=== PATIENT | female | born 1980 | race Caucasian/White ===

== ENCOUNTER → 2017-07-10 | Outpatient (CLI) | payer BC ==
[~2017-07-10] MED LIST: ALBUTEROL0.83 MG/ML IH; AMOXICILLIN 50500 MG PO; BCP TD; CIPRO 500MG TA500 MG PO; DROSPIRENONE; EMSAM12 MG/24 H TD; FLEXERIL5 MG PO; FOLIC ACID 11 MG/TA1 PO; IMITREX 6M6 MG/0.5 M SQ; KLONOPIN 1MG1 MG PO; LAMICTAL150 MG PO; LEVAQUIN 5500 MG/TA1 PO; LITHIUM CARBON300 MG PO; MAGNESIUM GLUC500 MG PO; NEURONTIN100 MG/CAP PO; NORCO 325 MG-51 TAB PO; PATANOL OPHTHALM5 ML OU; PERCOCET 5/321 UDTAB PO; PREDNISONE10 MG PO; PRISTIQ100 MG PO; PROVENTIL0.09 MG/A1 IH; SEROQUEL200 MG PO; TOPAMAX 100MG100 M1 PO; TUSS PO; VALIUM 5MG T5 MG/TAB PO; VALTREX PO; ZOFRAN 4MG T4 MG/TAB PO
== END ==
LOC: BHSO 14:50
DX: F41.1 Generalized anxiety disorder (principal)

== ENCOUNTER → 2017-10-16 | Outpatient (CLI) | payer BC | LOC: COL.RAD 10-09 10:30 | DX: Z01.812 Encounter for preprocedural laboratory examination (principal); E03.9 Hypothyroidism, unspecified | CPT/HCPCS: A9585 ==

== ENCOUNTER 2019-01-24 22:00 | Emergency (ER) | payer BC ==
[~2019-01-24] VITALS: Ht 160 cm; Wt 63.6 kg
[2019-01-24 22:42] LABS: BASO % 0.7 % (0.0-2.0); EOS # 0.1 (0.0-0.7); EOS % 1.5 % (0-4.0); GRAN # 2.9 (1.4-6.5); GRAN % 49.1 % (42.2-75.2); HEMATOCRIT 42.3 % (37.0-47.0); LYMPH # 2.4 (1.2-3.4); MEAN CELL VOLUME 94 fl (80.0-100.0); MEAN CORPUSCULAR HEMOGLOBIN 31 pg (27.0-31.0); MEAN CORPUSCULAR HGB CONC 33 g/dl (33.0-37.0); MEAN PLATELET VOLUME 9.5 fl (7.4-10.4); MONO # 0.4 (0.1-0.6); MONO % 6.5 % (1.7-9.3); PLATELET COUNT 230 K/mm3 (130-400); RED BLOOD COUNT 4.48 M/mm3 (4.10-5.30); REDCELL DISTRIBUTION WIDTH-CV 13.1 % (11.5-14.5)
[2019-01-24 22:56] LABS: ALANINE AMINOTRANSFERASE 24 U/L (9-52); ALBUMIN 4.4 gm/dL (3.5-5.0); ALCOHOL(ethanol),MEDICAL 38 mg/dL; ALKALINE PHOSPHATASE 69 U/L (50-136); ANION GAP 10 mmol/L (7-16); AST,SGOT 21 U/L (15-37); BILIRUBIN,TOTAL 1.3 mg/dL (0.0-1.0); BLOOD UREA NITROGEN 14 mg/dL (7-17); CALCIUM 9.1 mg/dL (8.4-10.2); CARBON DIOXIDE 21 mmol/L (22-30); CHLORIDE 110 mmol/L (98-107); CREATININE, serum 1.22 mg/dL (0.52-1.25); GLUCOSE 76 mg/dL (74-106); POTASSIUM 3.4 mmol/L (3.4-5.0); SODIUM 141 mmol/L (137-145); TOTAL PROTEIN 7.3 gm/dL (6.4-8.2)
[2019-01-24 22:57] LABS: ACETAMINOPHEN < 10 ug/mL (10-30); SALICYLATE < 1.0 mg/dL
[2019-01-25 00:04] LABS: COLLECTION METHOD CLEAN CATCH
[2019-01-25 00:12] LABS: MUCOUS Present /lpf; PH 6 (5-8); SQUAMOUS EPITHELIAL 0-2 /hpf; URINE APPEARANCE Clear; URINE BACTERIA None Seen /hpf; URINE BILIRUBIN Negative (NEGATIVE); URINE BLOOD 2+ (NEGATIVE); URINE COLOR Straw; URINE GLUCOSE Negative (NEGATIVE); URINE KETONE Negative (NEGATIVE); URINE LEUKOCYTE ESTERASE Negative (NEGATIVE); URINE NITRATE Negative (NEGATIVE); URINE PROTEIN(semi-quant) Negative (NEGATIVE); URINE RBC 0-2 /hpf; URINE UROBILINOGEN Negative (NEGATIVE)
[2019-01-25 00:20] LABS: TRICYCLIC ANTIDEPRESS URINE NEGATIVE
[2019-01-25 10:30] VITALS: TEMP 96.9
[2019-01-25 15:12] VITALS: BP 113/67; PULSE 49
== END 2019-01-25 15:22 ==
LOC: COL.ER 22:00
PROVIDERS: Nurse Practitioner
DX: R45.851 Suicidal ideations (principal); G43.909 Migraine, unspecified, not intractable, without status migrainosus; F41.9 Anxiety disorder, unspecified; F32.9 Major depressive disorder, single episode, unspecified; Z88.5 Allergy status to narcotic agent

== ENCOUNTER 2020-06-14 20:25 | Emergency (ER) | payer BC ==
[~2020-06-14] VITALS: Ht 157.5 cm; Wt 58.2 kg
[2020-06-14 20:36] VITALS: BP 105/48; TEMP 98.6
[2020-06-14 22:00] VITALS: PULSE 78
== END 2020-06-14 22:00 | disposition home or self-care (01) ==
LOC: COL.ER 20:25
DX: M54.2 Cervicalgia (principal); M54.5 Low back pain; F32.9 Major depressive disorder, single episode, unspecified; J45.909 Unspecified asthma, uncomplicated

== ENCOUNTER 2021-09-24 14:20 | Emergency (ER) | payer BC ==
[~2021-09-24] VITALS: Ht 157.5 cm; Wt 57.7 kg
[2021-09-24 14:53] LABS: COLLECTION METHOD CLEAN CATCH
[2021-09-24 15:03] LABS: PH 5 (5-8); URINE APPEARANCE Hazy; URINE BACTERIA None Seen /hpf; URINE BILIRUBIN Negative (NEGATIVE); URINE BLOOD Negative (NEGATIVE); URINE COLOR Yellow; URINE GLUCOSE Negative (NEGATIVE); URINE KETONE Negative (NEGATIVE); URINE LEUKOCYTE ESTERASE Negative (NEGATIVE); URINE NITRATE Negative (NEGATIVE); URINE PROTEIN(semi-quant) Negative (NEGATIVE); URINE RBC 0-2 /hpf; URINE UROBILINOGEN Negative (NEGATIVE)
[2021-09-24 15:48] LABS: BASO % 0.5 % (0.0-2.0); EOS # 0.1 K/mm3 (0.0-0.7); EOS % 1.6 % (0-4.0); GRAN # 5.4 K/mm3 (1.4-6.5); GRAN % 70.9 % (42.2-75.2); HEMATOCRIT 40.3 % (37.0-47.0); HEMOGLOBIN 13.4 g/dl (12.5-16.0); LYMPH # 1.6 K/mm3 (1.2-3.4); LYMPH % 21.2 % (20.0-51.0); MEAN CELL VOLUME 95 fl (80.0-100.0); MEAN CORPUSCULAR HEMOGLOBIN 32 pg (27.0-31.0); MEAN CORPUSCULAR HGB CONC 33 g/dl (33.0-37.0); MEAN PLATELET VOLUME 9.3 fl (7.4-10.4); MONO # 0.4 K/mm3 (0.1-0.6); MONO % 5.5 % (1.7-9.3); PLATELET COUNT 259 K/mm3 (130-400); RED BLOOD COUNT 4.26 M/mm3 (4.10-5.30); REDCELL DISTRIBUTION WIDTH-CV 13.8 % (11.5-14.5)
[2021-09-24 16:07] LABS: BILIRUBIN,TOTAL 0.5 mg/dL (0.2-1.2); CALCIUM 8.8 mg/dL (8.4-10.2); CREATININE, serum 1.07 mg/dL (0.57-1.11); TOTAL PROTEIN 6.7 gm/dL (6.2-8.1)
[2021-09-24 18:28] VITALS: BP 122/76; PULSE 52; TEMP 98.2
== END 2021-09-24 18:32 | disposition short-term general hospital (02) ==
LOC: COL.ER 14:20
PROVIDERS: Family Medicine; Student in an Organized Health Care Education/Training Program
DX: R10.31 Right lower quadrant pain (principal); F41.9 Anxiety disorder, unspecified; F32.A Depression, unspecified; Z79.899 Other long term (current) drug therapy; Z90.49 Acquired absence of other specified parts of digestive tract
CPT/HCPCS: J2405; J3010